=== PATIENT | female | born 1935 | race Two or more races ===

== ENCOUNTER 2024-04-17 12:06 | Emergency (ER) | payer OTHER ==
[~2024-04-17] VITALS: Ht 160 cm; Wt 76.2 kg
[2024-04-17] MEDS ORDERED: DEXAMETHASONE SODIUM PHOSPHATE 4 MG/ML VIAL IM ONE (17:15)
[2024-04-17] MEDS ORDERED: DEXAMETHASONE SODIUM PHOSPHATE 4 MG/ML VIAL ONE (17:27)
[2024-04-17] MEDS ORDERED: HYDROCORT 2.5%-30 GM TOP (17:59)
== END 2024-04-17 18:39 | disposition home or self-care (01) ==
LOC: ER 12:08
DX: L29.89 Other pruritus (principal)
CPT/HCPCS: 96372; 99282; J1100